=== PATIENT | female | born 1970 | race Caucasian/White ===

== ENCOUNTER 2016-09-25 10:24 | Inpatient (IN) | payer OTHER ==
[~2016-09-25] VITALS: Ht 167.6 cm; Wt 146.8 kg
[2016-09-25] VITALS (11 sets, daily range): BP systolic 89–140; BP diastolic 50–102
--- NOTE | ~2016-09-25 | PR ---
[place], [place] PROGRESS NOTE NAME: CLAUDY LOCO [facility] #: [id number] UNIT #: [id number] ROOM: 401 DOCTOR: SIGIFREDO MONCADA MD BIRTHDATE: [birth year] DOS: SUBJECTIVE: The patient is feeling fairly good, does not have any complaints, but she feels that her blood pressure is running low. She is not dizzy or lightheaded. OBJECTIVE: VITAL SIGNS: Blood pressure is 98/66 this morning, temperature is 97.6, pulse of 81, respirations 20. LUNGS: Diminished breath sounds. HEART: Irregular, heart rate in the 70s-80s. ABDOMEN: Obese, soft. EXTREMITIES: Without any edema. LABORATORY DATA: None available today. BMP yesterday showed a potassium of 3.5. ASSESSMENT AND PLAN: 1. Acute systolic congestive heart failure, improving clinically as well as radiologically. We will make the Lasix p.o. and we will repeat a chest x-ray. 2. Chronic respiratory failure, on oxygen supplementation. She mostly uses it at night. We will assess for daily home usage today. A PT consult will be obtained to make sure that she is able to go home. 3. Chronic atrial fibrillation with rapid ventricular response. Her pressure is low from multiple new medications that were started. She is on Cardizem, Rythmol and Toprol. The dose of Toprol has been cut down to try to normalize the blood pressure. 4. Hypokalemia. Supplementation was given. Routine labs have been ordered. SIGIFREDO MONCADA MD CM:PNTRANS 0722 1003 SIGIFREOD MONCADA MD 09/29/16 1001 interface
--- NOTE | ~2016-09-25 | WRIGHTHP ---
[place], [place] PATIENT HISTORY AND PHYSICAL EXAM NAME: CLAUDY LOCO [facility] #: [id number] UNIT #: [id number] ROOM: 401 DOCTOR: LUCILLE BRUNER MD BIRTHDATE: [birth year] DOS: 09/25/2016 HISTORY OF PRESENT ILLNESS: The patient is a 46-year-old female with past medical history of chronic atrial fibrillation with rapid ventricular response, history of hypothyroidism, rheumatoid arthritis, polycystic ovarian syndrome, benign essential hypertension, restless leg syndrome, Trevin syndrome, type 2 diabetes mellitus. The patient presented to the Emergency Department with 3-day complaint of palpitations, irregular and fast heart rate and shortness of breath. The patient was seen by Dr. Demetri Rojo, and she was found to have atrial fibrillation with rapid ventricular response. No chest pains. No other GI or urinary symptoms. The patient was diagnosed with having atrial fibrillation with rapid ventricular response and acute congestive heart failure. The patient was started on IV Cardizem in the Emergency Department to control her heart rate and then admitted on monitored bed for continued management. Dr. Melton has been consulted. The patient is starting to feel better. She was also diuresed with IV Lasix. REVIEW OF SYSTEMS: LUNGS: Increasing shortness of breath, no wheezing. GASTROINTESTINAL: No nausea, vomiting, diarrhea or constipation. CARDIOVASCULAR: No chest pain, but complains of palpitations at home. FAMILY HISTORY: Noncontributory. HOME MEDICATIONS: The patient was taking aspirin, iron, Plaquenil, Synthroid, Claritin, metformin, metoprolol, Singulair, Protonix, Requip, spironolactone, sulfasalazine. ALLERGIES: No known drug allergies. FAMILY HISTORY: Noncontributory. PHYSICAL EXAMINATION: GENERAL: Alert and oriented x 3, morbidly obese, in no visible distress. HEENT AND NECK: Extraocular movements are intact. Sclerae are anicteric. Oral mucosa is moist and clean. No obvious facial weakness. Neck is supple without any lymphadenopathy. No thyromegaly. No JVD. No carotid arterial bruits. LUNGS: Clear to auscultation. No wheezing. No rhonchi. CARDIOVASCULAR SYSTEM: Heart rate is regular in rate and rhythm. S1 and S2 normally audible. No significant murmur or any other abnormal cardiac sounds. ABDOMEN: Soft, nontender. No obvious organomegaly. Bowel sounds are present. No obvious herniation. EXTREMITIES: Without significant cyanosis or edema. Warm to touch. CENTRAL NERVOUS SYSTEM: Alert and oriented x 3. Cranial nerves II-XII are intact. Speech is normal. The patient is able to move all extremities. Normal muscle strength. Deep tendon reflexes are equal on both sides. Plantars were downgoing. IMPRESSION: 1. The patient with chronic atrial fibrillation with rapid ventricular response [place], [place] PATIENT HISTORY AND PHYSICAL EXAM NAME: CLAUDY LOCO [facility] #: [id number] UNIT #: [id number] ROOM: [facility] DOCTOR: LUCILLE BRUNER MD BIRTHDATE: [birth year] with better controlled heart rate with IV Cardizem infusion. Dr. Melton her orthopedically impaired teacher will follow her. 2. Acute on chronic congestive heart failure, systolic type, made worse by rapid ventricular response from atrial fibrillation. The patient is being diuresed with IV Lasix and serum electrolytes will be monitored. 3. Type 2 diabetes mellitus. I will monitor blood sugars and treat accordingly and stop her metformin because of her elevation of creatinine. 4. Hypothyroidism, treated with levothyroxine. 5. Rheumatoid arthritis, treated with Plaquenil. 6. Pollen allergies treated and controlled with loratadine. LUCILLE BRUNER MD CM:HISPHYS:PATIENT HISTORY AND PHYSICAL EXAMINATION [phone] LUCILLE BRUNER MD 09/25/162046 interface
--- NOTE | ~2016-09-25 | CON ---
[place], [place] REPORT OF CONSULTATION NAME: CLAUDY LOCO UNIT #: [id number] ROOM: 401 DOCTOR: NOHEMI GEORGE [facility] BIRTHDATE: [birth year] DOS: 09/27/2016 HISTORY OF PRESENT ILLNESS: The patient came with a progressive increase in palpitations. The patient was found to be with congestive heart failure and cardiomegaly. The patient has atrial fibrillation since 2014, on beta karen agents and Xarelto 20 mg daily and the patient has marked obesity. The patient also has hypothyroidism, diabetes mellitus type 2, rheumatoid arthritis and allergies. No chest discomfort, no syncope. She is on Cardizem drip 15 mg per an hour. No history of stroke, history of hypertension. PHYSICAL EXAMINATION: VITAL SIGNS: Afebrile. Blood pressure is 104/74, pulse ox is 94, heart rate is 61. Heart rate is now 80 to 100. NECK: Positive hepatojugular reflux. LUNGS: Diminished breath sounds at bases, bibasilar rales. HEART: S1, S2, regular. ABDOMEN: Soft, obese. We will discontinue the Lanoxin and then add Rythmol 225 long acting twice a day and since current medications are able to control and the patient also want to adjust the medications to optimize since she has been on the beta-karen for a long time. We will reduce the dose of Cardizem drip to 10 mg and we will continue to monitor. She ___. Thank you very much for asking me to see the patient and I will follow the patient with you. RAUL SONG MD CM:CONSTR:REPORT OF CONSULTATION 1643 09/28/16 2254 interface CHARLEY PENA MD and ASHU MONTGOMERY MD
--- NOTE | ~2016-09-25 | PR ---
[place], [place] PROGRESS NOTE NAME: CLAUDY LOCO UNIT #: [id number] ROOM: 401 DOCTOR: ORA BARRON MD BIRTHDATE: [birth year] DOS: 09/29/2016 SUBJECTIVE: I am seeing this patient on behalf of Dr. Melton. She has chronic atrial fibrillation with cardiomyopathy. She tells me her heart is said to be quite weak. She underwent bariatric surgery in June of this year and had an uneventful postoperative course. She has not had any loss of consciousness. She did have dizziness, but there was dysrhythmia at that time other than atrial fibrillation with a controlled rate. She was started on Rythmol a couple of days ago and has been on anticoagulation for some time. She has no breathing problems, has not had any chest pain. She is eating fine. She has lost 100 pounds since surgery in June of this year. PHYSICAL EXAMINATION: GENERAL: This is a patient who is extremely obese, very pleasant, alert. She is not tachypneic. Complexion is fine. VITAL SIGNS: Pulse is irregular at 88 beats per minute. Systolic blood pressure is 96. NECK: JVP is normal. AJR is negative. CARDIOVASCULAR: Auscultation reveals no murmurs. There is no edema in the lower extremities. LUNGS: Clear to auscultation. IMPRESSION: 1. Atrial fibrillation with controlled ventricular rate now. 2. There is no evidence of cardiac decompensation clinically. 3. Cardiomyopathy. RECOMMENDATIONS: I am not sure what her LV ejection fraction is. If it is low, then propafenone is not an appropriate drug for her. Short-term use of amiodarone would be very appropriate, particularly with her having had ventricular tachycardia. If EF is less than 35%, Dr. Melton will advise further active management. ADDENDUM: I reviewed her echocardiogram briefly and she has dilated left ventricle with an ejection fraction that is less than 25%; therefore, the Rythmol should be discontinued in favor of amiodarone. [place], [place] PROGRESS NOTE NAME: CLAUDY LOCO UNIT #: [id number] ROOM: 401 DOCTOR: ORA BARRON MD BIRTHDATE: [birth year] ORA BARRON MD CM:PNTRANS 1734 0056 ORA BARRON MD 09/30/16 0349 interface
--- NOTE | ~2016-09-25 | PR ---
[place], [place] PROGRESS NOTE NAME: CLAUDY LOCO [facility] #: [id number] UNIT #: [id number] ROOM: 401 DOCTOR: SIGIFREDO MONCADA MD BIRTHDATE: [birth year] DOS: SUBJECTIVE: The patient states she is feeling better and does not have any complaints. Her breathing is much improved. OBJECTIVE: VITAL SIGNS: Graphic trend shows a pressure 122/86, pulse of 76, respirations 20, temperature 97.6. LUNGS: Diminished breath sounds, clear. HEART: Irregular heart rate in the low 80s. ABDOMEN: Obese. EXTREMITIES: Without any edema. ASSESSMENT AND PLAN: 1. Acute systolic congestive heart failure. Radiologically and clinically, the patient is improving. We will continue diuretics. 2. Hypokalemia. Supplementation was given awaiting labs today. 3. Nonsustained ventricular tachycardia. This could be from hypokalemia as well as severe cardiomyopathy, awaiting the echocardiogram report today. The patient may be a good candidate for AICD on biventricular pacemaker. We will discuss with Dr. Melton when he is available. 4. Morbid obesity, status post bariatric surgery in June, the 100-pound weight loss. 5. Long-term use of anticoagulants. Continue medications. SIGIFREDO MONCADA MD CM:PNTRANS 0626 0723 SIGIFREDO MONCADA MD 09/28/16 0722 interface
--- NOTE | ~2016-09-25 | PR ---
[place], [place] PROGRESS NOTE NAME: CLAUDY LOCO [facility] #: [id number] UNIT #: [id number] ROOM: 401 DOCTOR: LUCILLE BRUNER MD BIRTHDATE: [birth year] DOS: 09/26/2016 SUBJECTIVE: The patient is still having palpitations, but feeling somewhat better. She is also short of breath. The patient says the chief of safety and protection has not seen her so far. OBJECTIVE: VITAL SIGNS: Blood pressure 122/84, heart rate 96 beats per minute, breathing 18 times per minute, temperature 98.2 degrees Fahrenheit. GENERAL APPEARANCE: Morbid obesity. HEENT AND NECK: Exam within normal limits. Signs of left neck surgery for parotid gland removal. CARDIOVASCULAR SYSTEM: Irregularly irregular heart rate. LUNGS: Clear to auscultation. ABDOMEN: Soft, nontender. No obvious organomegaly. Bowel sounds are present. EXTREMITIES: Without significant cyanosis or edema. IMPRESSION: 1. Acute over chronic congestive heart failure, being treated with diuresis. The patient on Lasix. Serum electrolytes are being monitored. BUN and creatinine was 19 and 1.3 today. 2. Hypothyroidism, replaced with levothyroxine. 3. Diabetes mellitus type 2. Blood sugars are reasonably controlled. 4. Rheumatoid arthritis. The patient remains on Plaquenil. 5. Pollen allergies, treated and asymptomatic with loratadine. LUCILLE BRUNER MD CM:PNTRANS 1110 0029 LUCILLE BRUNER MD 09/27/16 0027 interface
--- NOTE | ~2016-09-25 | PR ---
[place], [place] PROGRESS NOTE NAME: CLAUDY LOCO [facility] #: [id number] UNIT #: [id number] ROOM: 401 DOCTOR: SIGIFREDO MONCADA MD BIRTHDATE: [birth year] DOS: SUBJECTIVE: The patient was in the bathroom brushing her teeth, walked back into her room and appeared to be minimally short of breath. She does not have any complaints of chest pains. Her heart rate was going into low 100s. OBJECTIVE: VITAL SIGNS: Blood pressure is 102/68, pulse of 101 when she is resting ____ respirations 20, temperature 98. LUNGS: Diminished breath sounds. HEART: Irregular. Heart rate is tachycardic, most of the time in the low 100s. ABDOMEN: Obese. EXTREMITIES: Without any edema. LABORATORY DATA: No labs available this morning. Glucose 101, BUN 19, creatinine 1.32, sodium 139, potassium 3.5, chloride 103. Chest x-ray, none available after admission. ASSESSMENT AND PLAN: 1. Acute systolic congestive heart failure. The patient is awaiting an echocardiogram results and a Cardiology consultation. The patient is on diuretics. Routine labs will be ordered for tomorrow. 2. Chronic atrial fibrillation with rapid ventricular response. Digoxin will be added today. She is already on maximal dose of Cardizem. 3. Long-term use of anticoagulants, stable and tolerating it. SIGIFREDO MONCADA MD CM:PNTRANS 0648 07 SIGIFREDO MONCADA MD 09/27/16 2006 interface
[~2016-09-25 10:24] MED LIST: ALDACTONE100 MG PO; ALEVE220 MG PO; AZULFIDINE ENT500 MG PO; AZULFIDINE500 M1 PO; CIPRO500 MG PO; CLARITIN10 MG PO; CYCLOBENZAPRINE10 MG PO; FLEXERIL10 MG PO; FOLIC ACID1 MG PO; HEP-FORTE1 CAP PO; LISINOPRIL20 MG PO; METFORMIN1000 MG PO; METFORMIN500 MG PO; METHOTREXATE2.5 M1 PO; METHOTREXATE2.5 MG PO; MULTIPLE VITAMI1 TA3 PO; NATURE'S BLEND F1 MG PO; NORVASC10 MG PO; OXYGEN NAS; PLAQUENIL200 MG PO; PREVACID30 M1 PO; PREVACID30 M2 PO; PREVACID30 MG PO; REMICADE100 MG IV; REQUIP0.5 MG PO; REQUIP1 MG PO; SINGULAIR10 M1 PO; SINGULAIR10 MG PO; SPIRONOLACTONE100 MG PO; SULFASALAZINE500 M1 PO; SYNTHROID0.025 MG PO; SYNTHROID300 MCG PO; Synthroid,Lev200 MCG PO; TOPROL XL50 M1 PO; TRAMADOL HCL50 MG PO; XARE20MG PO; ZOFRAN ODT4 MG SL
[2016-09-25 11:09] LABS: BASO % 0.3 % (0.0-1.0); EOS # 0.1 10*3/uL (0.0-0.4); EOS % 1.1 % (1.0-4.0); HEMATOCRIT 41.6 % (37.0-47.0); HEMOGLOBIN 14.1 g/dl (12.0-16.0); LYMPH # 1.2 10*3/uL (1.3-4.4); MEAN CELL VOLUME 98.8 fl (81.0-99.0); MEAN CORPUSCULAR HGB 33.5 pg (27.0-31.0); MEAN CORPUSCULAR HGB CONC 33.9 g/dl (33.0-37.0); MEAN PLATELET VOLUME 13.3 fl (9.6-12.3); MONO # 0.8 10*3/uL (0.1-1.0); MONO % 8.2 % (3.0-9.0); PLATELET COUNT AUTOMATED 119 10*3/uL (130-400); RED BLOOD COUNT 4.21 10*6/uL (4.10-5.10); RED CELL DISTRI WIDTH 13.7 % (0-14.5); WHITE BLOOD COUNT 10.3 10*3/uL (4.8-10.8)
[2016-09-25 11:35] LABS: MAGNESIUM 1.7 mg/dL (1.5-2.1); POTASSIUM 4.7 mmol/L (3.5-5.1); TROPONIN I 0.017 ng/ml (<0.045)
[2016-09-25] MEDS ORDERED: CLARITIN10 MG PO (12:04)
[2016-09-25] MEDS ORDERED: TOPROL XL50 M1 PO (12:04)
[2016-09-25] MEDS ORDERED: SYNTHROID25 MCG PO (12:04)
[2016-09-25] MEDS ORDERED: PANTOPRAZOLE SO40 MG PO (12:04)
[2016-09-25] MEDS ORDERED: PLAQUENIL200 MG PO (12:05)
[2016-09-25] MEDS ORDERED: ALDACTONE25 M1 PO (12:05)
[2016-09-25] MEDS ORDERED: NATURE'S BLEND F1 MG PO (12:05)
[2016-09-25] MEDS ORDERED: ACTIGALL300 MG PO (12:05)
[2016-09-25] MEDS ORDERED: ASPIR LOW81 MG PO (12:07)
[2016-09-25] MEDS ORDERED: SULFASALAZINE500 MG PO (12:07)
[2016-09-25] MEDS ORDERED: MULTI-DAY VITA1 EACH PO (12:08)
[2016-09-25] MEDS ORDERED: VITAMIN D31000 IU PO (12:08)
[2016-09-25] MEDS ORDERED: CALCIUM WITH V1 EAC1 PO (12:08)
[2016-09-25] MEDS ORDERED: B12100 MC1 PO (12:09)
[2016-09-25] MEDS ORDERED: TRAMADOL HCL50 MG PO (12:09)
[2016-09-25] MEDS ORDERED: SINGULAIR10 M1 PO (12:13)
[2016-09-25] MEDS ORDERED: REQUIP2 MG PO (12:14)
[2016-09-25] MEDS ORDERED: IRON325 M2 PO (12:14)
[2016-09-25] MEDS ORDERED: METFORMIN1000 MG PO (13:52)
[2016-09-26] VITALS: BP 94/63
[2016-09-26 04:00] VITALS: BP 109/66
[2016-09-26] MEDS ORDERED: XARE20MG PO (05:31)
[2016-09-26 06:48] LABS: POTASSIUM 3.5 mmol/L (3.5-5.1)
[2016-09-26 08:00] VITALS: BP 122/84
[2016-09-26 12:00] VITALS: BP 118/78
[2016-09-26 16:00] VITALS: BP 106/73
[2016-09-26 20:00] VITALS: BP 108/80
[2016-09-27] VITALS (8 sets, daily range): BP systolic 89–136; BP diastolic 60–87
[2016-09-28] VITALS: BP 122/86
[2016-09-28 06:32] LABS: POTASSIUM 3.5 mmol/L (3.5-5.1)
[2016-09-28 08:00] VITALS: BP 108/78
[2016-09-28 12:00] VITALS: BP 126/80
[2016-09-28 16:00] VITALS: BP 106/70
[2016-09-28 20:00] VITALS: BP 118/79
[2016-09-29] VITALS: BP 105/74
[2016-09-29 05:00] VITALS: BP 98/66
[2016-09-29 08:00] VITALS: BP 96/60
[2016-09-29 12:00] VITALS: BP 92/68
[2016-09-29 16:00] VITALS: BP 108/66
[2016-09-29 20:00] VITALS: BP 110/64
[2016-09-30] VITALS (7 sets, daily range): BP systolic 72–147; BP diastolic 0–259
[2016-09-30 07:23] LABS: POTASSIUM 3.5 mmol/L (3.5-5.1)
[2016-09-30 21:47] LABS: BASO # 0.1 10*3/uL (0.0-0.1); BASO % 0.6 % (0.0-1.0); EOS # 0.4 10*3/uL (0.0-0.4); EOS % 4.7 % (1.0-4.0); HEMOGLOBIN 15.3 g/dl (12.0-16.0); LYMPH # 2.2 10*3/uL (1.3-4.4); LYMPH % 25.8 % (27.0-41.0); MEAN CELL VOLUME 97.3 fl (81.0-99.0); MEAN CORPUSCULAR HGB 33.8 pg (27.0-31.0); MEAN CORPUSCULAR HGB CONC 34.8 g/dl (33.0-37.0); MONO # 0.7 10*3/uL (0.1-1.0); NEUT # 5.1 10*3/uL (2.3-7.9); NEUT % 60.5 % (47.0-73.0); PLATELET COUNT AUTOMATED 178 10*3/uL (130-400); RED BLOOD COUNT 4.52 10*6/uL (4.10-5.10); RED CELL DISTRI WIDTH 13.3 % (0-14.5); WHITE BLOOD COUNT 8.5 10*3/uL (4.8-10.8)
[2016-09-30 21:55] LABS: POTASSIUM 3.5 mmol/L (3.5-5.1)
[2016-10-01] VITALS: BP 107/74
[2016-10-01 04:00] VITALS: BP 107/74
[2016-10-01 08:00] VITALS: BP 80/0
[2016-10-01 09:17] VITALS: BP 100/60
[2016-10-01 11:10] VITALS: BP 108/0
== END 2016-10-01 14:19 | disposition home or self-care (01) | DRG 308 ==
LOC: ED 10:24 → EDHOLD 12:51 → 4E 12:51 → ICCU 09-30 20:32
PROVIDERS: Emergency Medicine; Internal Medicine
DX: I48.2 Chronic atrial fibrillation (principal); I50.23 Acute on chronic systolic (congestive) heart failure; I47.2 Ventricular tachycardia; J96.10 Chronic respiratory failure, unspecified whether with hypoxia or hypercapnia; I42.9 Cardiomyopathy, unspecified; Z68.43 Body mass index [BMI] 50.0-59.9, adult; E66.01 Morbid (severe) obesity due to excess calories; I11.0 Hypertensive heart disease with heart failure; Z79.01 Long term (current) use of anticoagulants; E03.9 Hypothyroidism, unspecified; G25.81 Restless legs syndrome; E87.6 Hypokalemia; E11.9 Type 2 diabetes mellitus without complications; M06.9 Rheumatoid arthritis, unspecified; E28.2 Polycystic ovarian syndrome; Z79.82 Long term (current) use of aspirin; Z79.84 Long term (current) use of oral hypoglycemic drugs; Z79.899 Other long term (current) drug therapy; Z91.09 Other allergy status, other than to drugs and biological substances; Z98.84 Bariatric surgery status; Z87.01 Personal history of pneumonia (recurrent); Z85.89 Personal history of malignant neoplasm of other organs and systems; Z92.3 Personal history of irradiation; Z83.3 Family history of diabetes mellitus

== ENCOUNTER 2016-11-19 09:59 | Emergency (ER) | payer OTHER ==
[~2016-11-19] VITALS: Ht 167.6 cm; Wt 2.4 kg
[~2016-11-19 09:59] MED LIST changes: +ACTIGALL300 MG PO; +ALDACTONE25 M1 PO; +ASPIR LOW81 MG PO; +B12100 MC1 PO; +CALCIUM WITH V1 EAC1 PO; +IRON325 M2 PO; +MULTI-DAY VITA1 EACH PO; +PANTOPRAZOLE SO40 MG PO; +REQUIP2 MG PO; +SULFASALAZINE500 MG PO; +SYNTHROID25 MCG PO; +VITAMIN D31000 IU PO
[2016-11-19 10:28] LABS: BASO % 0.5 % (0.0-1.0); EOS # 0.3 10*3/uL (0.0-0.4); EOS % 4.5 % (1.0-4.0); IG # 0.1 10*3/uL (0.0-0.1); LYMPH # 2.1 10*3/uL (1.3-4.4); LYMPH % 32.9 % (27.0-41.0); MEAN CELL VOLUME 98.2 fl (81.0-99.0); MEAN CORPUSCULAR HGB 33.6 pg (27.0-31.0); MEAN CORPUSCULAR HGB CONC 34.2 g/dl (33.0-37.0); MEAN PLATELET VOLUME 11.8 fl (9.6-12.3); MONO # 0.5 10*3/uL (0.1-1.0); MONO % 8.6 % (3.0-9.0); NEUT # 3.3 10*3/uL (2.3-7.9); NEUT % 52.4 % (47.0-73.0); PLATELET COUNT AUTOMATED 125 10*3/uL (130-400); RED BLOOD COUNT 3.87 10*6/uL (4.10-5.10); RED CELL DISTRI WIDTH 13.1 % (0-14.5); WHITE BLOOD COUNT 6.3 10*3/uL (4.8-10.8)
[2016-11-19 10:37] LABS: INTERNATIONAL NORM RATIO 1.1 (2.0-3.5); PROTHROMBIN TIME 11.6 SECONDS (9.0-12.4)
[2016-11-19 10:46] LABS: ALBUMIN 3.6 gm/dl (3.1-4.5); ALKALINE PHOSPHATASE 66 U/L (45-117); BILIRUBIN, TOTAL 1.2 mg/dl (0.2-1.0); BUN 24 mg/dl (7-24); CARBON DIOXIDE 26 mmol/L (21-32); CHLORIDE 103 mmol/L (98-107); CPK 68 U/L (26-192); EST GLOM FILT AFRICAN AMERICAN 47 ml/min; GLUCOSE 81 mg/dL (65-99); MAGNESIUM 1.8 mg/dL (1.5-2.1); POTASSIUM 3.7 mmol/L (3.5-5.1); SGOT/AST 18 IU/L (3-35); SGPT/ALT 20 U/L (12-78); SODIUM 136 mmol/L (136-145); TOTAL PROTEIN 7.7 gm/dL (6.4-8.2)
[2016-11-19 11:01] LABS: C-REACTIVE PROTEIN < 0.29 MG/DL (0-0.3); TROPONIN I 0.071 ng/ml (<0.045)
== END 2016-11-19 13:26 | disposition home or self-care (01) ==
LOC: ED 09:59
PROVIDERS: Emergency Medicine
DX: T39.1X1A Poisoning by 4-Aminophenol derivatives, accidental (unintentional), initial encounter (principal); I11.0 Hypertensive heart disease with heart failure; I50.9 Heart failure, unspecified; I48.91 Unspecified atrial fibrillation; E03.9 Hypothyroidism, unspecified; Y92.9 Unspecified place or not applicable; Z79.82 Long term (current) use of aspirin; Z79.899 Other long term (current) drug therapy

== ENCOUNTER 2016-12-01 12:35 | Emergency (ER) | payer OTHER ==
[~2016-12-01] VITALS: Ht 167.6 cm; Wt 146.5 kg
[2016-12-01 13:05] LABS: BASO % 0.6 % (0.0-1.0); EOS # 0.3 10*3/uL (0.0-0.4); EOS % 4.4 % (1.0-4.0); HEMATOCRIT 40.2 % (37.0-47.0); HEMOGLOBIN 13.6 g/dl (12.0-16.0); LYMPH # 1.5 10*3/uL (1.3-4.4); LYMPH % 24.1 % (27.0-41.0); MEAN CORPUSCULAR HGB 34.5 pg (27.0-31.0); MEAN CORPUSCULAR HGB CONC 33.8 g/dl (33.0-37.0); MEAN PLATELET VOLUME 11.5 fl (9.6-12.3); MONO # 0.5 10*3/uL (0.1-1.0); MONO % 8.4 % (3.0-9.0); NEUT # 3.9 10*3/uL (2.3-7.9); NEUT % 61.4 % (47.0-73.0); PLATELET COUNT AUTOMATED 154 10*3/uL (130-400); RED BLOOD COUNT 3.94 10*6/uL (4.10-5.10); RED CELL DISTRI WIDTH 14.2 % (0-14.5); WHITE BLOOD COUNT 6.4 10*3/uL (4.8-10.8)
[2016-12-01 13:13] LABS: INTERNATIONAL NORM RATIO 1.2 (2.0-3.5)
[2016-12-01 13:20] LABS: ALBUMIN 3.6 gm/dl (3.1-4.5); CREATININE 1.22 mg/dL (0.55-1.02); POTASSIUM 4.3 mmol/L (3.5-5.1); TOTAL PROTEIN 7.5 gm/dL (6.4-8.2)
[2016-12-01] MEDS ORDERED: ANUSOL-HC25 MG R (13:49)
[2016-12-01] MEDS ORDERED: MIRALAX POWDER17 G1 PO (13:49)
== END 2016-12-01 14:31 | disposition home or self-care (01) ==
LOC: ED 12:35
PROVIDERS: Nurse Practitioner Family
DX: K64.8 Other hemorrhoids (principal); I48.91 Unspecified atrial fibrillation; I11.0 Hypertensive heart disease with heart failure; I50.9 Heart failure, unspecified; E03.9 Hypothyroidism, unspecified; M06.9 Rheumatoid arthritis, unspecified; Z79.899 Other long term (current) drug therapy; Z79.82 Long term (current) use of aspirin

== ENCOUNTER → 2017-05-06 | Outpatient (CLI) | payer OTHER ==
[~2017-05-06] MED LIST changes: +ANUSOL-HC25 MG R; +MIRALAX POWDER17 G1 PO
[2017-05-06 15:08] LABS: BASO # 0.1 10*3/uL (0.0-0.1); BASO % 0.6 % (0.0-1.0); EOS # 0.3 10*3/uL (0.0-0.4); EOS % 3.9 % (1.0-4.0); HEMATOCRIT 49.7 % (37.0-47.0); HEMOGLOBIN 17.4 g/dl (12.0-16.0); LYMPH # 2.5 10*3/uL (1.3-4.4); MEAN CELL VOLUME 96.1 fl (81.0-99.0); MEAN CORPUSCULAR HGB 33.7 pg (27.0-31.0); MEAN PLATELET VOLUME 12.1 fl (9.6-12.3); MONO # 0.8 10*3/uL (0.1-1.0); MONO % 8.8 % (3.0-9.0); NEUT % 57.1 % (47.0-73.0); PLATELET COUNT AUTOMATED 202 10*3/uL (130-400); RED BLOOD COUNT 5.17 10*6/uL (4.10-5.10); RED CELL DISTRI WIDTH 12.6 % (0-14.5); WHITE BLOOD COUNT 8.7 10*3/uL (4.8-10.8)
[2017-05-06 15:09] LABS: CREATININE 1.26 mg/dL (0.55-1.02); POTASSIUM 4.4 mmol/L (3.5-5.1)
[2017-05-06 16:07] LABS: VITAMIN D, 25-HYDROXY 17.5 ng/mL (30-100)
[2017-05-06 16:08] LABS: FERRITIN 64.2 ng/mL (10.0-291.0); PTH INTACT 57.7 pg/mL (14.0-72.0)
== END | disposition home or self-care (01) ==
LOC: LAB 14:18
DX: Z98.84 Bariatric surgery status (principal); E56.9 Vitamin deficiency, unspecified; K21.9 Gastro-esophageal reflux disease without esophagitis

== ENCOUNTER → 2017-09-08 | Outpatient (CLI) | payer OTHER | END | disposition home or self-care (01) | LOC: US 10:19 | DX: D25.2 Subserosal leiomyoma of uterus (principal) ==

== ENCOUNTER → 2017-09-30 | Outpatient (CLI) | payer OTHER | END | disposition home or self-care (01) | LOC: CT 09-29 15:56 | DX: K57.30 Diverticulosis of large intestine without perforation or abscess without bleeding (principal); Q63.1 Lobulated, fused and horseshoe kidney; D25.9 Leiomyoma of uterus, unspecified; R31.9 Hematuria, unspecified; M99.85 Other biomechanical lesions of pelvic region ==

== ENCOUNTER → 2017-12-17 | Outpatient (CLI) | payer OTHER ==
[~2017-12-17] MED LIST changes: +CALCIUM CITRAT200 M1 PO; +ELIQUIS5 M1 PO; +FLECAINIDE ACE150 M1 PO; +PEPCID40 MG PO; +VASOTEC2.5 MG PO; -VITAMIN D31000 IU PO; +VITAMIN D32000 UNI1 PO; +XELJANZ5 M1 PO
== END | disposition home or self-care (01) ==
LOC: US 14:00
DX: N13.2 Hydronephrosis with renal and ureteral calculous obstruction (principal); N18.2 Chronic kidney disease, stage 2 (mild)

== ENCOUNTER → 2018-03-16 | Outpatient (CLI) | payer OTHER ==
[2018-03-16 10:56] LABS: BASO % 0.5 % (0.0-1.0); EOS # 0.3 10*3/uL (0.0-0.4); EOS % 3.4 % (1.0-4.0); HEMATOCRIT 41.7 % (37.0-47.0); HEMOGLOBIN 14.4 g/dl (12.0-16.0); LYMPH # 1.8 10*3/uL (1.3-4.4); LYMPH % 24.6 % (27.0-41.0); MEAN CELL VOLUME 95.4 fl (81.0-99.0); MEAN CORPUSCULAR HGB CONC 34.5 g/dl (33.0-37.0); MEAN PLATELET VOLUME 11.8 fl (9.6-12.3); MONO # 0.5 10*3/uL (0.1-1.0); MONO % 6.7 % (3.0-9.0); NEUT # 4.7 10*3/uL (2.3-7.9); NEUT % 64.4 % (47.0-73.0); PLATELET COUNT AUTOMATED 141 10*3/uL (130-400); RED BLOOD COUNT 4.37 10*6/uL (4.10-5.10); RED CELL DISTRI WIDTH 13.3 % (0-14.5); WHITE BLOOD COUNT 7.3 10*3/uL (4.8-10.8)
[2018-03-16 11:22] LABS: ALBUMIN 3.8 gm/dl (3.1-4.5); ALKALINE PHOSPHATASE 64 U/L (45-117); BUN 15 mg/dl (7-24); CHLORIDE 107 mmol/L (98-107); CREATININE 1.18 mg/dL (0.55-1.02); POTASSIUM 4.1 mmol/L (3.5-5.1); SGOT/AST 19 IU/L (3-35); SGPT/ALT 27 U/L (12-78); SODIUM 142 mmol/L (136-145); TOTAL PROTEIN 7.4 gm/dL (6.4-8.2)
[2018-03-16 11:28] LABS: THYROID STIM HORMONE (HS) 0.218 uIU/ml (0.358-4.75)
[2018-03-16 12:10] LABS: FERRITIN 54.5 ng/mL (10.0-291.0)
== END | disposition home or self-care (01) ==
LOC: LAB 10:29
PROVIDERS: Internal Medicine Allergy & Immunology
DX: M05.741 Rheumatoid arthritis with rheumatoid factor of right hand without organ or systems involvement (principal); M05.742 Rheumatoid arthritis with rheumatoid factor of left hand without organ or systems involvement; R53.83 Other fatigue

== ENCOUNTER 2018-03-22 16:40 | Inpatient (IN) | payer OTHER ==
[~2018-03-22] VITALS: Ht 167.6 cm; Wt 151.0 kg
--- NOTE | ~2018-03-22 | PR ---
[place], [place] PROGRESS NOTE NAME: CLAUDY LOCO [facility] #: [id number] UNIT #: [id number] ROOM: 511 DOCTOR: ASHU MONTGOMERY MD BIRTHDATE: [birth year] DOS: 03/24/2018 IMPRESSION: History of atrial fibrillation status post ablation. SUBJECTIVE: The patient was admitted yesterday with bradycardia had decreased of flecainide 150 b.i.d. to 100 b.i.d. QT interval, which was 690 seconds. It is down to 490 seconds. Heart rate is also much better. Blood pressure is also stable. She is also feeling a lot better. I reviewed the echocardiogram showed an ejection fraction of 40%-45%, which is much better. OBJECTIVE: NECK: Supple, no JVD. LUNGS: Clear. HEART: Sounds are regular. NEUROLOGIC: Stable. LABORATORY DATA: Hemoglobin and hematocrit within normal limits. Electrolytes are within normal limits. IMPRESSION AND PLAN: The patient with paroxysmal atrial fibrillation ____ sinus rhythm, sinus bradycardia, prolonged QT interval. Recommendation is to decrease the flecainide to 50 b.i.d. and stop the beta blockers. Monitor the QT closely. Increase activity. Discharge planning and discussed with Dr. Cid, sericulturist. ASHU MONTGOMERY MD CM:PNTRANS 1630 0321 ASHU MONTGOMERY MD 03/25/18 0319 interface
--- NOTE | ~2018-03-22 | CON ---
[place], [place] REPORT OF CONSULTATION NAME: CLAUDY LOCO [facility] #: [id number] UNIT #: [id number] ROOM: 511 DOCTOR: ULISES GEORGEASHU BIRTHDATE: [birth year] DOS: 03/23/2018 HISTORY OF PRESENT ILLNESS: The patient is well known to me with a known history of cardiomyopathy, nonischemic, atrial fibrillation, status post ablation recently seen by seasoning sprayer to have a switch from amiodarone to flecainide. The patient came in with dizzy spells, was found to be sinus bradycardia in 40s to prolonged QT interval. The patient is also on flecainide, metoprolol and Vasotec, which has been discontinued upon arrival. Heart rates in the 50s now, but the patient is staying in sinus rhythm. I discussed this patient with Dr. Harrell, the seasoning sprayer, who suggested to continue the flecainide at this point as it does not prolong the QT ____ sodium channel karen, but monitor her closely and repeat an EKG and followup the QT interval closely. In the meantime, we are going to decrease the flecainide to 100 mg b.i.d. and discontinue the metoprolol and probably we will put her on a Holter monitor upon discharge. PAST MEDICAL HISTORY: Cardiomyopathy, obesity, hypertension, arthritis, thyroid disease. PAST SURGICAL HISTORY: Gastric bypass surgery, history of atrial fibrillation and ablation. MEDICATIONS: She was on flecainide 150 b.i.d., metoprolol 50 mg daily, levothyroxine, pantoprazole, spironolactone, aspirin, cholecalciferol, Vasotec, and folic acid. The patient is already on Xarelto, metformin, tramadol, ferrous sulfate, cyanocobalamin. REVIEW OF SYSTEMS: CONSTITUTIONAL: No fever, no chills. HEENT: No visual disturbance or hearing problems. CARDIOVASCULAR SYSTEM: As per HPI. GASTROINTESTINAL: No nausea, no vomiting. GENITOURINARY: No dysuria, hematuria. NEUROLOGIC: Stable. LABORATORY DATA: Shows white count of 5.8, hemoglobin 14.1, hematocrit 41.1, potassium is 3.6, chloride is 114, creatinine is 1, GFR is 57. BNP is elevated to be 781. Chest x-ray, no acute process. EKG, sinus bradycardia with prolonged QT interval. IMPRESSION: The patient with history of obesity, gastric surgery, history of atrial fibrillation, status post ablation, sick sinus syndrome, bradycardia. RECOMMENDATIONS: Discontinue the metoprolol. Continue the flecainide, decrease the dosage. Discussed with seasoning sprayer, Dr. Harrell. Monitor the blood pressure closely. Review the echocardiogram. Continue anticoagulation and I will follow up. [place], [place] REPORT OF CONSULTATION NAME: CLAUDY LOCO UNIT #: [id number] ROOM: 511 DOCTOR: ASHU MONTGOMERY MD BIRTHDATE: [birth year] ASHU MONTGOMERY MD CM:CONSTR:REPORT OF CONSULTATION 0729 03/23/18 0751 interface
--- NOTE | ~2018-03-22 | EKG ---
[place], [place] ELECTROCARDIOGRAM REPORT NAME: CLAUDY LOCO UNIT #: [id number] ROOM: 511 DOCTOR: EPIPHANY DRAFT REPORT BIRTHDATE: [birth year] [facility] Test Date: 2018-03-24 Test Time: 08:36:22 Pat Name: CLAUDY LOCO Department: Room: 511 2 Gender: F Coagulator: Venita Chavez : 1970 Requested By: SIGIFREDO MONCADA Order Number: [id number] Reading MD: Edward Melton MD Measurements Intervals [place] Rate: 54 P: 40 OR: 183 QRS: 17 QRSD: 107 T: 117 QT: 497 QTc: 472 Interpretive Statements Sinus rhythm Nonspecific T abnrm, anterolateral leads Compared to ECG 03/22/2018 16:55:49 Prolonged QT interval no longer present Electronically Signed On 03-24-2018 14:15:04 PST by Edward Melton MD CM:EKGRPT:ELECTROCARDIOGRAM REPORT 0836 1415 SIGIFREDO ORTIZ DRAFT REPORT SIGIFREDO MONCADA MD
--- NOTE | ~2018-03-22 | EKG ---
[place], [place] ELECTROCARDIOGRAM REPORT NAME: CLAUDY LOCO UNIT #: [id number] ROOM: 511 DOCTOR: ANGEL DRAFT REPORT BIRTHDATE: [birth year] [facility] Test Date: 2018-03-22 Test Time: 16:55:49 Pat Name: CLAUDY LOCO Department: er Room: 511 Gender: F Process Trainer: EKG.IN : 1970 Requested By: JIHAN DE LEON Order Number: [id number] Reading MD: Edward Melton MD Measurements Intervals [place] Rate: 50 P: 44 VT: 185 QRS: 16 QRSD: 95 T: 78 QT: 690 QTc: 630 Interpretive Statements Sinus rhythm Prolonged QT interval Electronically Signed On 03-23-2018 4:05:25 PST by Edward Melton MD CM:EKGRPT:ELECTROCARDIOGRAM REPORT 1655 0405 JIHAN CROWLEY DRAFT REPORT JIHAN DE LEON DO
--- NOTE | ~2018-03-22 | DS ---
[place], [place] DISCHARGE SUMMARY NAME: CLAUDY LOCO UNIT #: [id number] ROOM: 511 DOCTOR: SIGIFREDO MONCADA MD BIRTHDATE: [birth year] DOS: HOSPITAL COURSE: The patient is 47 years old, known to us from previous admissions, comes in after noticing increasing dizziness, lightheadedness, and heart rate being in the low 40s after her medications were adjusted. Please refer to H and P for details. After admission, she was placed on a lower dose of flecainide and metoprolol was discontinued. Heart rate seems to be stabilizing. She also did have QT prolongation, which is slowly improving. Echocardiogram showed improvement in the LV function to about 40-45% with concentric LVH. The patient was seen by Dr. Melton during the stay here and continues to improve. She is no longer dizzy or lightheaded and the blood sugars are controlled. Thyroid functions are normal. Metoprolol has been discontinued and she remains stable as far as the blood pressures concern, so the plan is to discharge her to home today. Follow up with her PCP. DISCHARGE DIAGNOSES: 1. Symptomatic bradycardia. 2. QT prolongation. 3. Hypothyroidism. 4. Benign hypertension, LVH. 5. Restless legs. 6. Gastroesophageal reflux disease. 7. History of chronic atrial fibrillation, now in sinus rhythm with long-term use of anticoagulants. 8. Rheumatoid arthritis. DISCHARGE MEDICATIONS: Flecainide 50 mg twice a day, levothyroxine 150 mcg daily, loratadine 10 daily, vitamin D 2000 units daily, multivitamin one tablet daily, tramadol 50 q.i.d., Singulair 10 daily, Requip 2 mg at bedtime, Pepcid 40 b.i.d., Vasotec 2.5 daily, Eliquis 5 b.i.d., Xeljanz 5 mg twice a day, calcium 600 twice a day. Discontinue medicine is metoprolol, dosage of flecainide has been decreased. [place], [place] DISCHARGE SUMMARY NAME: CLAUDY LOCO UNIT #: [id number] ROOM: 511 DOCTOR: SIGIFREDO MONCADA MD BIRTHDATE: [birth year] SIGIFREDO MONCADA MD CM:NORY 8 7 SIGIFREDO MONCADA MD 03/25/1837 interface
--- NOTE | ~2018-03-22 | WRIGHTHP ---
[place], [place] PATIENT HISTORY AND PHYSICAL EXAM NAME: CLAUDY LOCO [facility] #: [id number] UNIT #: [id number] ROOM: 511 DOCTOR: SIGIFREDO MONCADA MD BIRTHDATE: [birth year] DOS: HISTORY OF PRESENT ILLNESS: This patient is 47 years old. The patient is known to me from previous admissions. She has developed dizziness in the last few days. She noticed that the heart rate was in the low 50s and sometimes even in the 40s with dizziness. PCP, Dr. Castanon advised her to come into the Emergency Room. She denied having any chest pains, any shortness of breath, any fever or chills. She was seen by Dr. Harrell, autocad detailer last week and was placed on flecainide. She was later seen by Dr. Melton, at that time she was not experiencing any complaints and she was back in sinus rhythm. She was in AFib at the time she was seen by Dr. Harrell. After seen by Dr. Melton, she was continued on the same medications. PAST MEDICAL HISTORY: Significant for: 1. Chronic atrial fibrillation. 2. History of congestive heart failure from rapid AFib, diastolic. 3. Type 2 diabetes mellitus. 4. Hypothyroidism. 5. Rheumatoid arthritis. 6. Chronic seasonal allergies. MEDICATIONS: Medications that she is on are Eliquis 5 b.i.d., calcium 600 b.i.d., vitamin D 2000 units daily, vitamin B12 100 mcg daily, Vasotec 2.5 daily, Pepcid 40 b.i.d., flecainide 150 b.i.d., levothyroxine 150 mcg daily, loratadine 10 daily, metoprolol 75 mg daily, montelukast 10 mg daily, multivitamin 1 tablet daily, Requip 2 mg at bedtime, Xeljanz 5 mg b.i.d., tramadol 50 q.i.d. p.r.n. SOCIAL HISTORY: Nonsmoker. Does not use any alcohol. Lives at home. She is not employed because of disabilities. FAMILY HISTORY: Significant for mother who at the age of 26 from complications of type 1 diabetes. Father who is relatively healthy and he has one brother who is also healthy. PHYSICAL EXAMINATION: GENERAL: She is awake and alert and oriented. VITAL SIGNS: Graphic trend shows pressure of 131/67, pulse of 53, respirations 19, temperature 98.0. LUNGS: Clear. HEART: Regular. ABDOMEN: Obese, soft, nontender. EXTREMITIES: Without any edema. LABORATORY DATA: Comprehensive glucose 98, BUN 15, creatinine 1.18, GFR 59. Electrolytes normal. TSH was 0.218. WBC count is 7.3, hemoglobin 14.4, hematocrit 41.7, platelets 141. ASSESSMENT AND PLAN: 1. The patient who presents with symptomatic bradycardia. The patient has been [place], [place] PATIENT HISTORY AND PHYSICAL EXAM [facility] [id number] UNIT #: [id number] ROOM: 511 DOCTOR: SIGIFREDO MONCADA MD BIRTHDATE: [birth year] admitted. We will discontinue her metoprolol and hold off on flecainide. Dr. Melton has been consulted. Echocardiogram is ordered. Rule out [place] protocol was ordered. 2. Hypothyroidism. TSH was abnormal. We will repeat the TSH in the morning before she takes a medication to see whether we need to make any adjustments in medications. 3. Type 2 diabetes mellitus. The patient is currently not on any diabetic medications. She is mostly diet controlled. Blood sugar will be checked daily. SIGIFREDO MONCADA MD CM:HISPHYS:PATIENT HISTORY AND PHYSICAL EXAMINATION 0833 0852 SIGIFREDO MONCADA MD 03/23/18 1008 interface
--- NOTE | ~2018-03-22 | PR ---
[place], [place] PROGRESS NOTE NAME: CLAUDY LOCO [facility] #: [id number] UNIT #: [id number] ROOM: 511 DOCTOR: SIGIFREDO MONCADA MD BIRTHDATE: [birth year] DOS: SUBJECTIVE: The patient is doing fine without any complaints this morning. OBJECTIVE: VITAL SIGNS: Graphic trend shows a pressure of 120/66, pulse of 49, respirations 18, and temperature 97.7. LUNGS: Clear. HEART: Regular. ABDOMEN: Soft. EXTREMITIES: Without any edema. DIAGNOSTIC DATA: Echocardiogram showed LV function about 40-45%, which is an improvement from 3 years ago, concentric LVH. ASSESSMENT AND PLAN: 1. Symptomatic bradycardia, which is resolved. 2. QT prolongation, which is improved. Discussed with Dr. Melton. The plan is to discharge the patient to home today on a lower dose of flecainide. 3. Chronic atrial fibrillation, now in sinus rhythm on long-term use of anticoagulants, which is to be continued. SIGIFREDO MONCADA MD CM:PNTRANS [id number] SIGIFREDO MONCADA MD 03/25/18 1059 interface
--- NOTE | ~2018-03-22 | PR ---
[place], [place] PROGRESS NOTE [facility] [id number] UNIT #: [id number] ROOM: 511 DOCTOR: SIGIFREDO MONCADA MD BIRTHDATE: [birth year] DOS: SUBJECTIVE: The patient is sitting up, eating her breakfast, does not have any complaints at all. She denies having any chest pains, palpitations or shortness of breath. OBJECTIVE: VITAL SIGNS: Graphic trend shows a pressure of 120/57, pulse of 50, respirations 20, temperature 97.9. LUNGS: Clear. HEART: Regular. ABDOMEN: Soft. EXTREMITIES: Without any edema. ASSESSMENT: 1. Symptomatic bradycardia, which seems to be resolving. 2. QT prolongation, which is continuing to be a problem. PLAN: Discussed with the patient. This morning, I did speak to Dr. Melton. I will talk to Dr. Harrell, her floors buffer, before making any decisions on further treatment plan. The dosage of Tambocor was cut down and the metoprolol has been discontinued. There is no other incriminating medication on her MAR which could be causing QT prolongation. So, wait for Dr. Harrell's opinion before deciding on further discharge planning. SIGIFREDO MNOCADA MD CM:PNTRANS [id number] SIGIFREDO MONCADA MD 03/24/18916 interface
[~2018-03-22 16:40] MED LIST changes: -CALCIUM CITRAT200 M1 PO; -ELIQUIS5 M1 PO; -FLECAINIDE ACE150 M1 PO; -PEPCID40 MG PO; -VASOTEC2.5 MG PO; -XELJANZ5 M1 PO
[2018-03-22 16:43] VITALS: BP 158/56
[2018-03-22 17:14] LABS: BASO % 0.5 % (0.0-1.0); EOS # 0.2 10*3/uL (0.0-0.4); EOS % 3.6 % (1.0-4.0); HEMATOCRIT 41.1 % (37.0-47.0); HEMOGLOBIN 14.1 g/dl (12.0-16.0); LYMPH # 0.9 10*3/uL (1.3-4.4); LYMPH % 15.8 % (27.0-41.0); MEAN CELL VOLUME 95.1 fl (81.0-99.0); MEAN CORPUSCULAR HGB 32.6 pg (27.0-31.0); MEAN CORPUSCULAR HGB CONC 34.3 g/dl (33.0-37.0); MEAN PLATELET VOLUME 12.4 fl (9.6-12.3); MONO # 0.4 10*3/uL (0.1-1.0); MONO % 7.1 % (3.0-9.0); NEUT # 4.2 10*3/uL (2.3-7.9); NEUT % 72.5 % (47.0-73.0); PLATELET COUNT AUTOMATED 117 10*3/uL (130-400); RED BLOOD COUNT 4.32 10*6/uL (4.10-5.10); RED CELL DISTRI WIDTH 13.6 % (0-14.5); WHITE BLOOD COUNT 5.8 10*3/uL (4.8-10.8)
[2018-03-22 17:29] LABS: ALBUMIN 3.4 gm/dl (3.1-4.5); ALKALINE PHOSPHATASE 54 U/L (45-117); BUN 10 mg/dl (7-24); CHLORIDE 114 mmol/L (98-107); CREATININE 1.03 mg/dL (0.55-1.02); LIPASE 93 U/L (73-393); POTASSIUM 3.6 mmol/L (3.5-5.1); SGOT/AST 19 IU/L (3-35); SGPT/ALT 28 U/L (12-78); SODIUM 144 mmol/L (136-145); TOTAL PROTEIN 6.5 gm/dL (6.4-8.2)
[2018-03-22 17:36] LABS: BETA-HCG, QUANT < 1.0 mIU/mL (1-3); TROPONIN I < 0.015 ng/ml (<0.045)
[2018-03-22 18:00] VITALS: BP 153/83
[2018-03-22 19:00] VITALS: BP 131/80
[2018-03-22] MEDS ORDERED: PEPCID40 MG PO (19:23)
[2018-03-22] MEDS ORDERED: VASOTEC2.5 MG PO (19:25)
[2018-03-22] MEDS ORDERED: ELIQUIS5 M1 PO (19:26)
[2018-03-22] MEDS ORDERED: XELJANZ5 M1 PO (19:27)
[2018-03-22] MEDS ORDERED: FLECAINIDE ACE150 M1 PO (19:27)
[2018-03-22] MEDS ORDERED: CALCIUM CITRAT200 M1 PO (19:29)
[2018-03-22 20:00] VITALS: BP 118/59
[2018-03-23] VITALS: BP 131/67
[2018-03-23 08:19] LABS: FREE T4 1.14 ng/dl (0.76-1.46)
[2018-03-23 08:24] LABS: THYROID STIM HORMONE (HS) 0.468 uIU/ml (0.358-4.75)
[2018-03-23 12:00] VITALS: BP 137/54
[2018-03-23 16:32] VITALS: BP 132/58
[2018-03-23 20:00] VITALS: BP 119/53
[2018-03-24] VITALS: BP 120/57
[2018-03-24 12:00] VITALS: BP 135/65
[2018-03-24 16:00] VITALS: BP 131/63
[2018-03-24 20:00] VITALS: BP 113/56
[2018-03-25] VITALS: BP 120/66
[2018-03-25 08:00] VITALS: BP 128/80
[2018-03-25] MEDS ORDERED: FLECAINIDE ACE100 M1 PO (08:13)
[2018-03-25 12:00] VITALS: BP 116/71
== END 2018-03-25 13:50 | disposition home or self-care (01) | DRG 309 ==
LOC: ED 16:40 → EDHOLD 18:22 → 5E 18:22
PROVIDERS: Emergency Medicine; Internal Medicine Cardiovascular Disease
DX: I45.81 Long QT syndrome (principal); I49.5 Sick sinus syndrome; E03.9 Hypothyroidism, unspecified; K21.9 Gastro-esophageal reflux disease without esophagitis; I11.0 Hypertensive heart disease with heart failure; I50.9 Heart failure, unspecified; E11.9 Type 2 diabetes mellitus without complications; I42.9 Cardiomyopathy, unspecified; E66.9 Obesity, unspecified; I48.0 Paroxysmal atrial fibrillation; I48.2 Chronic atrial fibrillation; E28.2 Polycystic ovarian syndrome; J30.2 Other seasonal allergic rhinitis; M06.9 Rheumatoid arthritis, unspecified; G25.81 Restless legs syndrome; Z79.01 Long term (current) use of anticoagulants; Z68.43 Body mass index [BMI] 50.0-59.9, adult; Z87.01 Personal history of pneumonia (recurrent); Z83.3 Family history of diabetes mellitus; Z80.9 Family history of malignant neoplasm, unspecified; Z85.9 Personal history of malignant neoplasm, unspecified; Z92.3 Personal history of irradiation

== ENCOUNTER → 2018-05-26 | Outpatient (CLI) | payer OTHER ==
[~2018-05-26] MED LIST changes: +CALCIUM CITRAT200 M1 PO; +DELTASONE20 M1 PO; +ELIQUIS5 M1 PO; +FLECAINIDE ACE100 M1 PO; +FLECAINIDE ACE150 M1 PO; +PEPCID40 MG PO; +PREDNISONE20 M1 PO; +ROBAXIN500 M1 PO; +VASOTEC2.5 MG PO; +XELJANZ5 M1 PO
[2018-05-26 13:22] LABS: HEMATOCRIT 45.5 % (37.0-47.0); HEMOGLOBIN 14.9 g/dl (12.0-16.0); MEAN CELL VOLUME 97.6 fl (81.0-99.0); MEAN CORPUSCULAR HGB CONC 32.7 g/dl (33.0-37.0); MEAN PLATELET VOLUME 12.3 fl (9.6-12.3); RED BLOOD COUNT 4.66 10*6/uL (4.10-5.10); RED CELL DISTRI WIDTH 13.3 % (0-14.5); WHITE BLOOD COUNT 3.1 10*3/uL (4.8-10.8)
[2018-05-26 13:52] LABS: ALBUMIN 3.6 gm/dl (3.1-4.5); CREATININE 1.19 mg/dL (0.55-1.02); POTASSIUM 4.5 mmol/L (3.5-5.1); TOTAL PROTEIN 7.8 gm/dL (6.4-8.2)
[2018-05-26 13:58] LABS: FREE T4 1.01 ng/dl (0.76-1.46); THYROID STIM HORMONE (HS) 2.63 uIU/ml (0.358-4.75)
[2018-05-26 14:26] LABS: VITAMIN D, 25-HYDROXY 29.8 ng/mL (30-100)
== END | disposition home or self-care (01) ==
LOC: LAB 11:20
PROVIDERS: Family Medicine
DX: E55.9 Vitamin D deficiency, unspecified (principal); E03.9 Hypothyroidism, unspecified; E78.00 Pure hypercholesterolemia, unspecified; R53.83 Other fatigue; E66.9 Obesity, unspecified

== ENCOUNTER → 2018-08-12 | Outpatient (CLI) | payer OTHER ==
[~2018-08-12] MED LIST changes: +TYLENOL325 M1 PO
== END | disposition home or self-care (01) ==
LOC: CT 01:14
DX: C49.A2 Gastrointestinal stromal tumor of stomach (principal); K76.0 Fatty (change of) liver, not elsewhere classified; K44.9 Diaphragmatic hernia without obstruction or gangrene

== ENCOUNTER → 2018-08-18 | Outpatient (CLI) | payer OTHER ==
[2018-08-18 14:07] LABS: BASO # 0.1 10*3/uL (0.0-0.1); BASO % 0.7 % (0.0-1.0); EOS # 0.2 10*3/uL (0.0-0.4); EOS % 2.8 % (1.0-4.0); HEMATOCRIT 44.5 % (37.0-47.0); HEMOGLOBIN 14.9 g/dl (12.0-16.0); LYMPH # 2.1 10*3/uL (1.3-4.4); LYMPH % 27.7 % (27.0-41.0); MEAN CELL VOLUME 98.9 fl (81.0-99.0); MEAN CORPUSCULAR HGB 33.1 pg (27.0-31.0); MEAN CORPUSCULAR HGB CONC 33.5 g/dl (33.0-37.0); MEAN PLATELET VOLUME 11.8 fl (9.6-12.3); MONO # 0.9 10*3/uL (0.1-1.0); MONO % 11.3 % (3.0-9.0); NEUT # 4.3 10*3/uL (2.3-7.9); NEUT % 56.6 % (47.0-73.0); PLATELET COUNT AUTOMATED 159 10*3/uL (130-400); RED CELL DISTRI WIDTH 13.7 % (0-14.5); WHITE BLOOD COUNT 7.6 10*3/uL (4.8-10.8)
[2018-08-18 14:31] LABS: ALBUMIN 3.9 gm/dl (3.1-4.5); ALKALINE PHOSPHATASE 62 U/L (45-117); BUN 15 mg/dl (7-24); CHLORIDE 106 mmol/L (98-107); CREATININE 1.17 mg/dL (0.55-1.02); POTASSIUM 4.3 mmol/L (3.5-5.1); SGOT/AST 29 IU/L (3-35); SGPT/ALT 47 U/L (12-78); SODIUM 140 mmol/L (136-145); TOTAL PROTEIN 7.5 gm/dL (6.4-8.2)
== END | disposition home or self-care (01) ==
LOC: LAB 13:42
PROVIDERS: Internal Medicine Allergy & Immunology
DX: Z51.81 Encounter for therapeutic drug level monitoring (principal); M05.741 Rheumatoid arthritis with rheumatoid factor of right hand without organ or systems involvement; M05.742 Rheumatoid arthritis with rheumatoid factor of left hand without organ or systems involvement

== ENCOUNTER 2018-10-07 14:46 | Emergency (ER) | payer OTHER ==
[~2018-10-07] VITALS: Ht 167.6 cm; Wt 149.7 kg
[~2018-10-07 14:46] MED LIST changes: -PREDNISONE20 M1 PO; -ROBAXIN500 M1 PO; -TYLENOL325 M1 PO
[2018-10-07] MEDS ORDERED: ROBAXIN500 M1 PO (15:23)
[2018-10-07] MEDS ORDERED: PREDNISONE20 M1 PO (15:23)
== END 2018-10-07 15:31 | disposition home or self-care (01) ==
LOC: ED 14:46
DX: M54.6 Pain in thoracic spine (principal); I48.91 Unspecified atrial fibrillation; I50.9 Heart failure, unspecified; I11.0 Hypertensive heart disease with heart failure; E03.9 Hypothyroidism, unspecified; E66.01 Morbid (severe) obesity due to excess calories; Z76.0 Encounter for issue of repeat prescription; Z79.899 Other long term (current) drug therapy

== ENCOUNTER → 2018-11-01 | Outpatient (CLI) | payer OTHER ==
[~2018-11-01] MED LIST changes: +PREDNISONE20 M1 PO; +ROBAXIN500 M1 PO
== END | disposition home or self-care (01) ==
LOC: ORTHO 01:34
DX: M25.512 Pain in left shoulder (principal)

== ENCOUNTER 2018-11-28 09:49 | Emergency (ER) | payer OTHER ==
[~2018-11-28] VITALS: Ht 167.6 cm; Wt 154.2 kg
[2018-11-28] MEDS ORDERED: TYLENOL325 M1 PO (10:51)
== END 2018-11-28 11:07 | disposition home or self-care (01) ==
LOC: ED 09:49
DX: M25.552 Pain in left hip (principal); I48.91 Unspecified atrial fibrillation; I50.9 Heart failure, unspecified; I11.0 Hypertensive heart disease with heart failure; E03.9 Hypothyroidism, unspecified; E66.9 Obesity, unspecified; M06.9 Rheumatoid arthritis, unspecified; Z79.899 Other long term (current) drug therapy; X58.XXXA Exposure to other specified factors, initial encounter; Y93.89 Activity, other specified; Y92.89 Other specified places as the place of occurrence of the external cause; Y99.8 Other external cause status

== ENCOUNTER → 2018-12-24 | Outpatient (CLI) | payer OTHER ==
[~2018-12-24] MED LIST changes: +TYLENOL325 M1 PO
[2018-12-24 12:08] LABS: BASO % 0.4 % (0.0-1.0); EOS # 0.1 10*3/uL (0.0-0.4); HEMATOCRIT 41.3 % (37.0-47.0); LYMPH # 1.4 10*3/uL (1.3-4.4); LYMPH % 29.4 % (27.0-41.0); MEAN CORPUSCULAR HGB 34.2 pg (27.0-31.0); MEAN CORPUSCULAR HGB CONC 33.9 g/dl (33.0-37.0); MEAN PLATELET VOLUME 11.2 fl (9.6-12.3); MONO # 0.4 10*3/uL (0.1-1.0); MONO % 9.1 % (3.0-9.0); NEUT # 2.7 10*3/uL (2.3-7.9); NEUT % 57.7 % (47.0-73.0); PLATELET COUNT AUTOMATED 148 10*3/uL (130-400); RED BLOOD COUNT 4.09 10*6/uL (4.10-5.10); RED CELL DISTRI WIDTH 13.8 % (0-14.5); WHITE BLOOD COUNT 4.7 10*3/uL (4.8-10.8)
[2018-12-24 12:30] LABS: ALBUMIN 3.7 gm/dl (3.1-4.5); ALKALINE PHOSPHATASE 58 U/L (45-117); BUN 14 mg/dl (7-24); CHLORIDE 107 mmol/L (98-107); CREATININE 1.18 mg/dL (0.55-1.02); POTASSIUM 4.2 mmol/L (3.5-5.1); SGOT/AST 23 IU/L (3-35); SGPT/ALT 39 U/L (12-78); SODIUM 139 mmol/L (136-145); TOTAL PROTEIN 7.1 gm/dL (6.4-8.2)
[2018-12-24 13:31] LABS: FERRITIN 24.7 ng/mL (10.0-291.0)
== END | disposition home or self-care (01) ==
LOC: LAB 11:40
PROVIDERS: Internal Medicine Allergy & Immunology
DX: M05.741 Rheumatoid arthritis with rheumatoid factor of right hand without organ or systems involvement (principal); M05.742 Rheumatoid arthritis with rheumatoid factor of left hand without organ or systems involvement; R53.83 Other fatigue

== ENCOUNTER 2019-02-22 08:24 | Emergency (ER) | payer OTHER ==
[~2019-02-22] VITALS: Ht 167.6 cm; Wt 154.2 kg
[2019-02-22 08:55] LABS: BASO % 0.8 % (0.0-1.0); EOS # 0.2 10*3/uL (0.0-0.4); EOS % 3.9 % (1.0-4.0); HEMOGLOBIN 14.9 g/dl (12.0-16.0); LYMPH # 1.2 10*3/uL (1.3-4.4); LYMPH % 23.1 % (27.0-41.0); MEAN CELL VOLUME 99.3 fl (81.0-99.0); MEAN CORPUSCULAR HGB 33.6 pg (27.0-31.0); MEAN CORPUSCULAR HGB CONC 33.9 g/dl (33.0-37.0); MEAN PLATELET VOLUME 11.4 fl (9.6-12.3); MONO # 0.4 10*3/uL (0.1-1.0); MONO % 8.3 % (3.0-9.0); NEUT # 3.3 10*3/uL (2.3-7.9); NEUT % 63.3 % (47.0-73.0); PLATELET COUNT AUTOMATED 142 10*3/uL (130-400); RED BLOOD COUNT 4.43 10*6/uL (4.10-5.10); RED CELL DISTRI WIDTH 13.4 % (0-14.5); WHITE BLOOD COUNT 5.2 10*3/uL (4.8-10.8)
[2019-02-22 09:13] LABS: ALBUMIN 3.5 gm/dl (3.1-4.5); ALKALINE PHOSPHATASE 59 U/L (45-117); BUN 15 mg/dl (7-24); CHLORIDE 108 mmol/L (98-107); CREATININE 1.03 mg/dL (0.55-1.02); LIPASE 146 U/L (73-393); POTASSIUM 3.7 mmol/L (3.5-5.1); SGOT/AST 38 IU/L (3-35); SGPT/ALT 57 U/L (12-78); SODIUM 142 mmol/L (136-145); TOTAL PROTEIN 7.3 gm/dL (6.4-8.2)
[2019-02-22 10:55] LABS: BILIRUBIN NEGATIVE (NEGATIVE); BLOOD 3+ (NEGATIVE); CLARITY SL CLOUDY (CLEAR); COLOR YELLOW (YELLOW); GLUCOSE NEGATIVE (NEGATIVE); KETONE NEGATIVE (NEGATIVE); LEUKO ESTERASE NEGATIVE (NEGATIVE); NITRITE NEGATIVE (NEGATIVE); PH 5.5 (5.0-9.0); SPECIFIC GRAVITY 1.025 (1.005-1.030); UROBILINOGEN 0.2 E.U./dl (0.2-1.0)
[2019-02-22 11:07] LABS: BACTERIA TRACE; RBC 21-30 rbc/hpf (0-2)
== END 2019-02-22 11:17 | disposition home or self-care (01) ==
LOC: ED 08:24
PROVIDERS: Emergency Medicine
DX: R10.9 Unspecified abdominal pain (principal); M54.5 Low back pain; I48.91 Unspecified atrial fibrillation; I11.0 Hypertensive heart disease with heart failure; I50.9 Heart failure, unspecified; E03.9 Hypothyroidism, unspecified; M06.9 Rheumatoid arthritis, unspecified; K21.9 Gastro-esophageal reflux disease without esophagitis; Z87.442 Personal history of urinary calculi

== ENCOUNTER 2019-05-13 10:20 | Emergency (ER) | payer OTHER ==
[2019-05-13 13:28] LABS: BILIRUBIN NEGATIVE (NEGATIVE); BLOOD 3+ (NEGATIVE); CLARITY CLOUDY (CLEAR); COLOR YELLOW (YELLOW); GLUCOSE NEGATIVE (NEGATIVE); KETONE 1+ (NEGATIVE); UROBILINOGEN 0.2 E.U./dl (0.2-1.0)
[2019-05-13 13:29] LABS: LEUKO ESTERASE TRACE (NEGATIVE); NITRITE NEGATIVE (NEGATIVE)
[2019-05-13 13:30] LABS: BACTERIA 2+; EPITHELIAL CELLS 15-20; RBC 16-20 rbc/hpf (0-2); YEAST 2+
[2019-05-13] MEDS ORDERED: CYCLOBENZAPRINE10 MG PO (13:47)
[2019-05-13] MEDS ORDERED: CEPHALEXIN500 M1 PO (13:47)
[2019-05-13] MEDS ORDERED: IBU800 MG PO (13:47)
== END 2019-05-13 14:02 | disposition home or self-care (01) ==
LOC: ED 10:20
PROVIDERS: Nurse Practitioner Family
DX: M54.5 Low back pain (principal); M62.830 Muscle spasm of back; N39.0 Urinary tract infection, site not specified; E03.9 Hypothyroidism, unspecified; I11.0 Hypertensive heart disease with heart failure; I50.9 Heart failure, unspecified; I48.91 Unspecified atrial fibrillation; K21.9 Gastro-esophageal reflux disease without esophagitis; M06.9 Rheumatoid arthritis, unspecified; Z79.899 Other long term (current) drug therapy; X50.1XXA Overexertion from prolonged static or awkward postures, initial encounter; Y93.E8 Activity, other personal hygiene; Y92.002 Bathroom of unspecified non-institutional (private) residence as the place of occurrence of the external cause; Y99.8 Other external cause status